=== PATIENT | male | born 1995 | race African-American/Black ===

== ENCOUNTER 2017-06-04 19:34 | Emergency (ER) | payer OTHER ==
[~2017-06-04] VITALS: Ht 182.9 cm; Wt 110.9 kg
--- NOTE | 2017-06-04 19:36 | ED.ADGEN ---
Adult General Chief Complaint Chief Complaint " I dislocated my finger... during football practice. The circus trainer could not get it back in.. " HPI HPI Patient is a 21 year old male who presents with above hx and injury to bring or fourth finger right hand. Finger is obviously dislocated. Increase capillary refill to fingertips as compared to other fingers of same hand. Decreased distal sensation of 4th finger. No previous injury to this finger. Patient is right-hand dominant. Patient up-to-date with vaccinations. 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 Patient denies any other injuries or health concerns. Procedure-gentle traction-and reduction with return of cap refill and sensation to right fourth finger. Pt. able to bend finger now and straighten it without problems. Favio splint applied. Review of Systems Review of Systems Constitutional: Denies fever or chills [] Eyes: Denies change in visual acuity, redness, or eye pain [] HENT: Denies nasal congestion or sore throat [] Respiratory: Denies cough or shortness of breath [] Cardiovascular: No additional information not addressed in HPI [] GI: Denies abdominal pain, nausea, vomiting, bloody stools or diarrhea [] : Denies dysuria or hematuria [] Musculoskeletal: Denies back pain or joint pain []dislocated right fourth finger Integument: Denies rash or skin lesions [] Neurologic: Denies headache, focal weakness or sensory changes [] Endocrine: Denies polyuria or polydipsia [] Family History Family History Noncontributory Current Medications Current Medications Current Medications Medications (Trade) Dose Ordered Sig/[facility] Start Time Stop Time Status Last Admin Dose Admin Hydrocodone Bitartrate/ Ibuprofen (Vicoprofen 7.5-200) 1 tab 1X ONCE 06/04/17 20:45 06/04/17 20:46 DC 06/04/17 20:45 1 TAB See nursing for home meds Allergies Allergies Allergies Coded Allergies Type Severity Reaction Last Updated Verified No Known Drug Allergies 06/04/17 No Physical Exam Physical Exam Constitutional: Well developed, well nourished, no acute distress, non-toxic appearance. [] HENT: Normocephalic, atraumatic, bilateral external ears normal, oropharynx moist, no oral exudates, nose normal. [] Eyes: PERRLA, EOMI, conjunctiva normal, no discharge. [] Neck: Normal range of motion, no tenderness, supple, no stridor. [] Cardiovascular:Heart rate regular rhythm, no murmur [] Lungs & Thorax: Bilateral breath sounds clear to auscultation [] Abdomen: Bowel sounds normal, soft, no tenderness, no masses, no pulsatile masses. [] Skin: Warm, dry, no erythema, no rash. [] Back: No tenderness, no CVA tenderness. [] Extremities: No tenderness, no cyanosis, no clubbing, ROM intact, no edema. [] Except right fourth finger and hand pain Neurologic: Alert and oriented X 3, normal motor function, normal sensory function, no focal deficits noted. [] Psychologic: Affect normal, judgement normal, mood normal. [] Current Patient Data Vital Signs Vital Signs Date Time Temp Pulse Resp B/P (MAP) Pulse Ox O2 Delivery O2 Flow Rate FiO2 06/04/17 19:51 97.8 87 20 97 Room Air EKG EKG [] Radiology/Procedures Radiology/Procedures My interpretation of initial x-ray shows a dislocated right fourth finger. Follow-up x-ray after reduction shows adequate positioning.[] Course & Med Decision Making Course & Med Decision Making Pertinent Labs and Imaging studies reviewed. (See chart for details) ice, elevation, splint, and follow-up primary care. Wear splint. Take Tylenol and ibuprofen as needed for pain. [] Final Impression Final Impression 1. Dislocation of right fourth finger[] Problems: Dragon Disclaimer Dragon Disclaimer This electronic medical record was generated, in whole or in part, using a voice recognition dictation system. ABRAM ASHRAF MD Jun 04, 2017 19:36
[2017-06-04 19:51] VITALS: BP 141/73
[2017-06-04] MEDS ORDERED: HYDROcodon/IBUPROFEN 7.5/200MG 1 TAB TABLET PO ONE (20:45)
--- NOTE | 2017-06-05 08:41 | RAD ---
Right hand, 3 views, 06/04/2017, 7:58 PM: History: Hand injury There is dislocation of the ring finger at the PIP joint level. The middle phalanx is displaced in a volar direction relative to the distal end of the proximal phalanx. A tiny cortical fracture fragment is noted adjacent to the proximal end of the middle phalanx. No other fracture or dislocation is identified. IMPRESSION: Dislocated ring finger at the PIP joint.
--- NOTE | 2017-06-05 08:42 | RAD ---
Right hand, 3 views, 06/04/2017, 9:12 PM: History: Postreduction evaluation Comparison is made to study of earlier the same day. The dislocation of the ring finger at the PIP joint has been reduced. There are 2 tiny calcific densities along the volar aspect of that joint compatible with avulsion fracture fragments, probably arising from the proximal end of the middle phalanx. No other fracture or dislocation is identified. IMPRESSION: 1. Satisfactory reduction of the right ring finger dislocation. 2. Tiny avulsion fracture fragments along the volar aspect of the PIP joint of the ring finger.
== END 2017-06-04 21:36 | disposition home or self-care (01) ==
LOC: ER 19:34
DX: S63.284A Dislocation of proximal interphalangeal joint of right ring finger, initial encounter (principal); X58.XXXA Exposure to other specified factors, initial encounter; Y93.61 Activity, american tackle football; Y99.8 Other external cause status; Y92.89 Other specified places as the place of occurrence of the external cause
CPT/HCPCS: 73130; 99284

== ENCOUNTER 2018-05-12 15:22 | Emergency (ER) | payer OTHER ==
[~2018-05-12] VITALS: Ht 182.9 cm; Wt 113.4 kg
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
--- NOTE | 2018-05-12 18:20 | RAD ---
AP and lateral left femur radiographs 05/12/2018 CLINICAL HISTORY: Left femur pain. Trauma. 2 AP and 2 lateral digital radiographs of the left femur were obtained. No fracture or dislocation of the left femur is seen. What appears to be a 3 cm osteochondromas is seen projecting laterally from the mid diaphysis of the left femur. No radiopaque foreign body is noted. IMPRESSION: No fracture or dislocation of the left femur is seen. Electronically signed by: Kirill Parks MD (05/12/2018 6:16 PM) [facility]
[2018-05-12 18:40] VITALS: BP 130/77
== END 2018-05-12 18:41 | disposition home or self-care (01) ==
LOC: ER 15:22
DX: D16.22 Benign neoplasm of long bones of left lower limb (principal); I10 Essential (primary) hypertension
CPT/HCPCS: 73552; 99284

== ENCOUNTER → 2020-04-19 | Outpatient (CLI) | payer OTHER | LOC: LAB 09:46 | PROVIDERS: ATTEND Physician Assistant | DX: Z20.828 Contact with and (suspected) exposure to other viral communicable diseases (principal) | CPT/HCPCS: 36415; 84484 ==